=== PATIENT | male | born 1995 | race Caucasian/White ===

== ENCOUNTER 2023-10-12 04:02 | Emergency (ER) | payer OTHER, SELFPAY ==
[2023-10-12 04:07] VITALS: BP 134/84
[2023-10-12 04:17] VITALS: BMI 27.0
--- NOTE | 2023-10-12 04:50 | ED.GENMED ---
History of Present Illness
General
Chief Complaint: Skin Problem
Source: patient and ambulance crew
Exam Limitations: none
Time Seen by Provider: 10/12/23 04:40
Nursing documentation reviewed up to this point in time: agreed with
Travel History
Have you had any contact with someone who has COVID-19?: No
Do you have any symptoms of coronavirus? Fever > 100 degrees, chills, cough, shortness of breath, sore throat, loss of taste or smell, muscle aches, or headache?: No
History of Present Illness
History of Present Illness:
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 He was walking a dog last night when he inadvertently tripped and fell forward striking his nose. He complains of pain and abrasion to his mid proximal nose. He denies loss
of consciousness, no epistaxis, no headache. He denies neck nor back pain, denies dizziness nor lightheadedness. He takes no anticoagulants.
He does admit to consuming alcohol yesterday evening but denies daily alcohol use.
He apparently had an argument with family members yesterday evening and was asked to leave the house. He is currently homeless and was brought to the ED early this evening around 9 PM via EMS, shortly after the trip and fall incident. After
initial nursing triage patient reportedly eloped from the waiting room, left prior to physician evaluation.
He has again called 911, apparently from local [employer] store requesting evaluation and is most concerned with his current homeless situation.
He takes no medicines on a daily basis even for medical marijuana.
He is unsure as to his last tetanus booster, believes this was greater than 10 years ago.
He does admit to mild to moderate local nasal pain but denies facial pain, denies eye pain.
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
Review of records reveals patient does have prior history of alcohol abuse, previous threats of suicide and previous intentional overdoses. He currently adamantly denies alcohol abuse, denies daily alcohol consumption, denies feeling depressed nor
suicidal thoughts.
Past History
Past History
ED Past Medical History: Psychiatric (Suicidal ideation, depression, alcohol abuse) and Other (Glaucoma, retinopathy, seizures)
ED Past Surgical History: Other (Multiple eye surgeries, hernia repair)
Social History
Tobacco: Non-smoker
Alcohol: Occasional (History of alcohol abuse in the past)
Drug: Marijuana
Personal: Single
Living: homeless (Currently homeless)
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
Family History
Family History: Other (Noncontributory)
Phy Exam
Physical Exam
Physical Exam:
GENERAL: 28-year-old male appears his stated age, awake and alert, pleasant, easily communicative and overall appears in no acute distress. Moderate odor of alcohol to the patient's breath. He brings with him several pieces of luggage.
EYE: Pupils are 4 mm bilaterally, there is mild clouding of the anterior chamber on the left which patient reports is chronic and unchanged. There is no chemosis nor conjunctival erythema.
NECK: Supple, nontender, no midline bony tenderness, no significant adenopathy.
ENT: There is a superficial abrasion anterior proximal nose with mild local soft tissue swelling and mild local tenderness to palpation. There is no epistaxis nor septal hematoma. No gross nasal bone deformity. Posterior pharynx is clear, oral
mucosa is moist. Teeth are intact, nontender. No facial bone tenderness. Full mandible range of motion without difficulty nor pain. TM clear b/l
CARDIAC: Regular rate and rhythm. no murmur.
LUNGS: Clear breath sounds bilaterally, no acute respiratory distress, no wheezes/rales/rhonchi
ABDOMEN: Soft, nondistended, without focal tenderness, no r/g, no cvat. normoactive BS.
NEUROLOGICAL: Alert and oriented x3, no focal neuro deficits. Gait is brandon and steady.
SKIN: Warm and dry, normal color, No rash.
MUSCULOSKELETAL: No C/C/E. peripheral pulses are full and equal b/l. No palpable tenderness.
PSYCH: Normal and appropriate interaction. Denies significant depression, denies suicidal thoughts. Admits to drinking alcohol tonight but adamantly denies daily alcohol use.
Course
Orders/Labs/Results
Orders:
Orders
10/12/23 04:49
Tetanus/Diphth/Acelpertussis [Adacel] 0.5 ml IM .ONCE ONE
Nasal Bones, complete 3 Views [CR Nasal Bones Comp Min 3 View] Urgent
Comment:
Reason For Exam: fall, nasal trauma, pain
10/12/23 05:18
Ondansetron Orally Disint [Zofran Odt (Orally Disintegrating)] 4 mg PO NOW STA
Vital Signs
Initial and Last Documented VS:
Initial Vital Signs
Pulse Resp BP Pulse Ox
88 15 134/84 95
10/12/23 04:07 10/12/23 04:07 10/12/23 04:07 10/12/23 04:07
Last Documented Vital Signs
Pulse Resp BP Pulse Ox
88 15 134/84 95
10/12/23 04:07 10/12/23 04:07 10/12/23 04:07 10/12/23 04:07
MDM/Problems Addressed
Differential Diagnosis Includes:
Patient presents after trip and fall with local contusion, abrasion to proximal nose. Concern for potential fracture thus will check nasal bone x-ray.
Will update Tdap.
He denies loss of consciousness, denies headache, takes no anticoagulants there for CT of the head is not indicated.
He does admit to alcohol consumption tonight but continues to deny daily alcohol use, denies alcohol abuse issues and continues to deny feeling suicidal.
He is however acutely homeless, apparently was kicked out of his family home this evening.
He currently has no immediate plans in place for housing.
Will plan to discharge to our waiting room and patient has been offered to speak with case management in the morning if needed.
*Radiology
Radiology exam reviewed: preliminary read by ED provider (Nasal bone x-rays negative for fracture.)
*Pulse Oximetry
Patient hypoxic: no
*Critical Care Note
Total Time (30-74mins, 75-104mins- exclusive of procedures): Not Applicable
Update Note
Update Note:
10/12/2023 0540 AM
nasal bone x-rays are unremarkable, no evidence of fracture.
Patient complains of some nausea and has been given Zofran. He now admits to moderate alcohol consumption over the past 5 days but had been sober for quite some time prior to that.
No evidence of significant alcohol withdrawal on exam.
He has been offered [facility] mental health specialist evaluation which he declines.
ED Attending Note
-
Portions of this chart may have been created with voice recognition software.� Occasional wrong word or��sound alike� substitutions may have occurred due to the inherent limitations of voice recognition software.
Discharge Plan
Departure
Patient Disposition: Home (Routine Discharge)
Date of Disposition: 10/12/23
Time of Disposition: 05:44
Patient with high blood pressure during this ER visit?: No
Condition: Good
Discharge Problem:
Contusion of nose, initial encounter, Homelessness
Instructions: Wound Care (DC), Minor Contusion ED
Prescriptions:
No Action
No Current Medications
0
Referrals:
Donaldo Moreno MD [Family Provider] - Call in 1-3 days for appt
Interventions
Interventions:
*Risk Screen - Suicide Last Done: 10/12/23 04:07
*General Assessment Last Done: 10/12/23 04:07
*Neglect/Abuse Screening Last Done: 10/12/23 04:07
ED- Fall Risk Assessment Last Done: 10/12/23 04:17
*ED COVID-19 Vaccine History Last Done: 10/12/23 04:17
ED-Skin Assessment Last Done: 10/12/23 04:17
[2023-10-12] MEDS: ADACEL 0.5 ML IM (05:58)
[2023-10-12] MEDS: ZOFRAN ODT (ORALLY DISINTEGRATING) 4 MG PO (05:59)
== END 2023-10-12 06:07 | disposition home or self-care (01) ==
LOC: EMR 04:02
PROVIDERS: EMERGENCY PHYSICIAN Emergency Medicine; FAMILY PHYSICIAN Family Medicine
DX: S00.33XA Contusion of nose, initial encounter (principal); S00.31XA Abrasion of nose, initial encounter; W01.0XXA Fall on same level from slipping, tripping and stumbling without subsequent striking against object, initial encounter; Y93.K1 Activity, walking an animal; Z59.00 Homelessness unspecified; H40.20X0 Unspecified primary angle-closure glaucoma, stage unspecified; F32.A Depression, unspecified; F10.11 Alcohol abuse, in remission; R56.9 Unspecified convulsions; F90.9 Attention-deficit hyperactivity disorder, unspecified type
CPT/HCPCS: 99283; 90471; 70160; 90715